=== PATIENT | female | born 1955 | race Two or more races ===

== ENCOUNTER 2018-04-21 16:16 | Emergency (ER) | payer OTHER ==
[~2018-04-21] VITALS: Ht 162.6 cm; Wt 79.4 kg
[2018-04-21] MEDS ORDERED: UNOBMED (16:30)
[2018-04-21] MEDS ORDERED: BENAZEPRIL HCL40 MG ORAL (16:31)
[2018-04-21] MEDS ORDERED: Acetaminophen 500mg (ES) tab ORAL ONE (17:30)
[2018-04-21 17:58] VITALS: BP 186/110
--- NOTE | 2018-04-21 18:01 | NUR ---
ED Nurse Note:pt. felt at work and c/o head injury lower back pain, skin is intact, clonidine was given for hypertention, pt. went to CT scan head
--- NOTE | 2018-04-21 19:16 | NUR ---
HAND-OFF: Report given to Leon YOUSIF RN .
--- NOTE | 2018-04-21 19:17 | NUR ---
HAND-OFF: Report received from Alex LONDON.
[2018-04-21] MEDS ORDERED: NORCO 5-325 TA1 EACH ORAL (19:33)
[2018-04-21] MEDS ORDERED: LIDOCAINE700 M1 TP (19:33)
[2018-04-21 19:53] VITALS: BP 186/110
--- NOTE | 2018-04-21 19:53 | NUR ---
ED Nurse Note: Patient cleared for discharge by ERMD. Patient verbalized understanding of discharge instructions, ID band removed, Patient departed with all belongings. Patient was A&Ox4, ambulatory with steady gait and accompanied by a family member upon departure.
--- NOTE | 2018-04-22 08:52 | Diagnostic Imaging Report ---
Indications: Pain, status post fall Technique: Spiral acquisitions obtained through the brain. Angled axial and coronal 5 x 5 mm slices were reconstructed. Total dose length product 1403.85 mGycm. CTDI vol(s) 70.38 mGy. Dose reduction achieved using automated exposure control Comparison: None. Findings: There is mild age-related enlargement of the ventricles and extra axial CSF spaces. There is minimal periventricular deep white matter low-attenuation consistent with chronic ischemic change. Acute intracranial hemorrhage or edema, mass effect, nor midline shift. Normal deras-white differentiation. Visualized orbits and sinuses are unremarkable. The calvarium is intact. Impression: Mild age-related changes. Negative for acute intracranial bleed or mass effect This agrees with the preliminary interpretation provided overnight by [facility]erad[facility] service. The CT scanner at [facility] is accredited by the [employer] and the scans are performed using protocols designed to limit radiation exposure to as low as reasonably achievable to attain images of sufficient resolution adequate for diagnostic evaluation.
--- NOTE | 2018-04-22 08:59 | Diagnostic Imaging Report ---
Indication: Chest pain Technique: One view of the chest. 2 views of the right ribs Comparison: none Findings: Lungs and pleural spaces are clear. The heart size is normal. No pneumothorax demonstrated. Impression: Negative
--- NOTE | 2018-04-22 10:04 | Diagnostic Imaging Report ---
Indication: Left knee pain Technique: 3 views of the left knee Comparison: None Findings: There is medial compartment degenerative joint space narrowing. There are medial osteophytes. There are lateral and patellar osteophytes as well. No acute fractures. No dislocations. No definite suprapatellar effusion Impression: Degenerative changes No acute bony trauma
--- NOTE | 2018-04-22 15:20 | Emergency Room Report ---
History of Present Illness General Chief Complaint: Multiple Trauma/Fall Source: Patient Present Illness HPI Patient is a 62-year-old female who presented after a fall at work. Patient reports having increased pain to the right side of her back as well as her left knee. Patient states she fell backwards and hit her head. She denies loss of consciousness. She reports having a moderate headache. She denies any neck pain. She reports having some prior history of hypertension and normally takes antihypertensive medication.Patient reports having increased pain with ambulation Allergies: Coded Allergies: No Known Allergies (Unverified , 04/21/18) Patient History Past Medical History: see triage record Last Menstrual Period: 2001 Now: No Reviewed Nursing Documentation: PMH: Agreed; PSxH: Agreed Nursing Documentation-PMH Past Medical History: No History, Except For Hx Hypertension: Yes Review of Systems All Other Systems: negative except mentioned in HPI Physical Exam Vital Signs Date Time Temp Pulse Resp B/P (MAP) Pulse Ox O2 Delivery O2 Flow Rate FiO2 04/21/18 16:26 98.6 94 18 168/109 96 Room Air Sp02 EP Interpretation: reviewed, normal General Appearance: normal inspection, well appearing, no apparent distress, alert, GCS 15 Head: other - scalp tenderness Eyes: bilateral eye PERRL ENT: normal ENT inspection, hearing grossly normal, normal voice Neck: normal inspection, full range of motion, supple, no bony tend Respiratory: normal inspection, normal breath sounds, no respiratory distress, no retraction, no wheezing, other - right chest wall tenderness posteriorly Cardiovascular #1: regular rate, rhythm, no edema Gastrointestinal: normal inspection, normal bowel sounds, non tender, soft, no guarding, no hernia Genitourinary: no CVA tenderness Musculoskeletal: normal inspection, back normal, normal range of motion, other - left knee pain, no laxity or deformity Neurologic: normal inspection, alert, oriented x3, responsive, permit review assistant III-XII nml as tested, speech normal Psychiatric: normal inspection, judgement/insight normal, mood/affect normal Skin: normal inspection, normal color, no rash Medical Decision Making Diagnostic Impression: Primary Impression: Fall Additional Impressions: Contusion Head injury Hypertension ER Course Patient presented for headache and knee pain after a fall. Differential diagnosis included was not limited to neck fracture, CVA, close head injury, syncopal episode, basilar ischemia, rib fracture. X-ray imaging showed no evidence of acute fracture to the left knee. There are degenerative changes noted. Rib series showed no evidence of acute fracture CT of head read by radiology showed no evidence of acute intracranial hemorrhage or skull fracture.Patient was given medications for blood pressure which patient has a prior history of hypertension. She was advised to follow-up with her primary care physician for recheck. Patient was advised to return if she began having any worsening pain persistent vomiting or other concerns. Patient was placed on modified work and was advised to follow-up with workers comp physician Last Vital Signs Date Time Temp Pulse Resp B/P (MAP) Pulse Ox O2 Delivery O2 Flow Rate FiO2 04/21/18 19:53 98.6 94 18 186/110 96 Room Air Status: improved Disposition: HOME, SELF-CARE Condition: Stable Scripts Lidocaine (Lidocaine) 1 Each Adh..patch 5 % TP DAILY for pain, #30 PATCH Prov: Merrill Hernández MD 04/21/18 Hydrocodone Bit/Acetaminophen 5-325* (NORCO 5-325*) 1 Each Tablet 1 TAB ORAL Q6H PRN for For Pain, #10 TAB 0 Refills Prov: Merrill Hernández MD 04/21/18 Patient Instructions: Head Injury, Adult, Patellar Fracture, Adult Merrill Hernández MD Apr 22, 2018 15:20
== END 2018-04-21 19:53 | disposition home or self-care (01) ==
LOC: EMR 17:45
DX: S00.93XA Contusion of unspecified part of head, initial encounter (principal); S80.02XA Contusion of left knee, initial encounter; W19.XXXA Unspecified fall, initial encounter; Y92.129 Unspecified place in nursing home as the place of occurrence of the external cause; Y99.0 Civilian activity done for income or pay; I10 Essential (primary) hypertension; R51 Headache
CPT/HCPCS: 70450; 99284